=== PATIENT | female | born 1970 | race Two or more races ===

== ENCOUNTER 2016-08-02 04:34 | Emergency (ER) | payer OTHER, SELFPAY ==
[~2016-08-02] VITALS: Ht 157.5 cm; Wt 58.1 kg
[~2016-08-02 04:34] MED LIST: IRON325 M1 PO
[2016-08-02 04:50] VITALS: BP 152/44
[2016-08-02] MEDS ORDERED: NKM (05:36)
--- NOTE | 2016-08-02 05:48 | Emergency Room Report ---
History of Present Illness General Chief Complaint: Palpitations Source: Patient (MIKE RAJPUT M.D.) Present Illness HPI 45 YOF with no medical history presents with "palpitations" for 2 weeks, associated with chills, sweating, "hot flashes", intermittent left sided headache. Has history of dysfunctional uterine bleeding but hasnt had menstrual cycle "in a while." Currently asymptomatic. Denies chest pain, SOB, abd pain, urinary complaints. Denies ETOH, drug use, smoking. (MIKE RAJPUT M.D.) Allergies: Coded Allergies: No Known Allergies (Unverified , 02/19/13) Patient History Past Medical History: other - dysfunctional uterine bleeding Past Surgical History: none Pertinent Family History: none Social History: Denies: alcohol use, drug use, smoking Last Menstrual Period: May Now: No Immunizations: UTD Reviewed Nursing Documentation: PMH: Agreed, PSxH: Agreed (MIKE RAJPUT M.D.) Immunizations: UTD Reviewed Nursing Documentation: PMH: Agreed, PSxH: Agreed (CHRISSY ROYAL M.D.) Review of Systems All Other Systems: negative except mentioned in HPI (MIKE RAJPUT M.D.) Physical Exam Vital Signs Date Time Temp Pulse Resp B/P Pulse Ox O2 Delivery O2 Flow Rate FiO2 08/02/16 04:43 98.4 108 18 173/96 100 08/02/16 04:50 Room Air Sp02 EP Interpretation: reviewed, normal General Appearance: normal inspection, well appearing, no apparent distress, alert, GCS 15, non-toxic Head: normocephalic, atraumatic Eyes: bilateral eye EOMI, bilateral eye PERRL ENT: normal ENT inspection, hearing grossly normal, normal voice Neck: normal inspection, full range of motion, supple, no bony tend Respiratory: normal inspection, chest non-tender, lungs clear, normal breath sounds, no rhonchi, no respiratory distress, no retraction, no wheezing Cardiovascular #1: normal peripheral pulses, regular rate, rhythm, no edema Gastrointestinal: normal inspection, normal bowel sounds, non tender, soft, no guarding, no hernia Genitourinary: no CVA tenderness Musculoskeletal: normal inspection, back normal, normal range of motion, Dayo' s Sign negative Neurologic: normal inspection, alert, oriented x3, responsive, automatic engraver III-XII nml as tested, motor strength/tone normal, speech normal Psychiatric: normal inspection, judgement/insight normal, mood/affect normal Skin: normal inspection, normal color, no rash Lymphatic: normal inspection (MIKE RAJPUT M.D.) Medical Decision Making Diagnostic Impression: Primary Impression: Palpitations ER Course ECG is NSR. No arrhythmia. Labs: Pending at time of signout Endorsed to Dr Royal to DC home after labs results returned A: Unlikely ACS given duration of symptoms, no CAD risk factors. Possibly early menopause Given copy of results, advised PMD followup DC home (MIKE RAJPUT M.D.) ER Course Hospital Course 45-year-old F presents ED complaining of palpitations Clinical course Patient initially seen and evaluated by Dr Rajput; please see his note for full history and physical labs reviewed- all electrolytes normal, troponins negative, no leukocytosis, hemoglobin/hematocrit stable, TSH normal EKG - NSR, no acute ischemic changes Reassurance given. Patient remained asymptomatic in ED. Patient will followup with PMD as outpatient I. I feel this is a highly complex case requiring extensive working including EKG/Rhythm strip, Xray/CT/US, Blood/urine lab work, repeat exams while in ED, and administration of strong opiates/narcotics for pain control, admission to hospital or close patient follow up. Diagnosis - palpitations Stable and discharged to home. Instructed to followup with PMD. Return to ED if symptoms recur or worsen Labs Test 08/02/16 05:40 White Blood Count 4.5 K/UL (4.8-10.8) Red Blood Count 4.44 M/UL (4.20-5.40) Hemoglobin 11.8 G/DL (12.0-16.0) Hematocrit 37.3 % (37.0-47.0) Mean Corpuscular Volume 84 FL (80-99) Mean Corpuscular Hemoglobin 26.5 PG (27.0-31.0) Mean Corpuscular Hemoglobin Concent 31.5 G/DL (32.0-36.0) Red Cell Distribution Width 15.3 % (11.6-14.8) Platelet Count 279 K/UL (150-450) Mean Platelet Volume 8.5 FL (6.5-10.1) Neutrophils (%) (Auto) 70.2 % (45.0-75.0) Lymphocytes (%) (Auto) 22.2 % (20.0-45.0) Monocytes (%) (Auto) 6.2 % (1.0-10.0) Eosinophils (%) (Auto) 0.7 % (0.0-3.0) Basophils (%) (Auto) 0.7 % (0.0-2.0) Urine Color Pale yellow Urine Appearance Clear Urine pH 6 (4.5-8.0) Urine Specific [place] 1.015 (1.005-1.035) Urine Protein Negative (NEGATIVE) Urine Glucose (UA) Negative (NEGATIVE) Urine Ketones Negative (NEGATIVE) Urine Occult Blood 2+ (NEGATIVE) Urine Nitrite Negative (NEGATIVE) Urine Bilirubin Negative (NEGATIVE) Urine Urobilinogen Normal MG/DL (0.0-1.0) Urine Leukocyte Esterase 1+ (NEGATIVE) Urine RBC 2-4 /HPF (0 - 2) Urine WBC 2-4 /HPF (0 - 2) Urine Squamous Epithelial Cells Few /LPF (NONE/OCC) Urine Bacteria None /HPF (NONE) Sodium Level 141 mEQ/L (135-145) Potassium Level 3.9 mEQ/L (3.4-4.9) Chloride Level 101 mEQ/L (98-107) Carbon Dioxide Level 27 mEQ/L (20-30) Anion Gap 13 (5-15) Blood Urea Nitrogen 15 mg/dL (7-23) Creatinine 0.7 mg/dL (0.5-0.9) Estimat Glomerular Filtration Rate > 60 mL/min (>60) Glucose Level 114 mg/dL (74-106) Calcium Level 10.0 mg/dL (8.6-10.2) Total Bilirubin 0.3 mg/dL (0.0-1.2) Aspartate Amino Transf (AST/SGOT) 20 U/L (5-40) Alanine Aminotransferase (ALT/SGPT) 15 U/L (3-33) Alkaline Phosphatase 61 U/L (35-104) Total Creatine Kinase 155 U/L (26-140) Troponin I < 0.30 ng/mL (<=0.30) Total Protein 7.4 g/dL (6.6-8.7) Albumin 4.2 g/dL (3.5-5.2) Globulin 3.2 g/dL Albumin/Globulin Ratio 1.3 (1.0-2.7) Thyroid Stimulating Hormone (TSH) 3.110 uIU/mL (0.300-4.500) (CHRISSY ROYAL M.D.) EKG Diagnostic Results Rate: normal Rhythm: NSR ST Segments: no acute changes ASA given to the pt in ED: No (MIKE RAJPUT M.D.) Rhythm Strip Diag. Results EP Interpretation: yes Rate: 90 Rhythm: NSR, no PVC's, no ectopy (MIEK RAJPUT M.D.) Last Vital Signs Date Time Temp Pulse Resp B/P Pulse Ox O2 Delivery O2 Flow Rate FiO2 08/02/16 04:50 98.6 92 16 152/44 100 Room Air (MIKE RAJPUT M.D.) Status: improved (CHRISSY ROYAL M.D.) Disposition: HOME, SELF-CARE Condition: Stable Referrals: [facility] (PCP) MIKE RAJPUT M.D. Aug 02, 2016 05:48 CHRISSY ROYAL M.D. Aug 02, 2016 07:44
[2016-08-02 06:01] LABS: BASOPHILS % (AUTO) 0.7 % (0.0-2.0); EOSINOPHILS % (AUTO) 0.7 % (0.0-3.0); LYMPHOCYTES % (AUTO) 22.2 % (20.0-45.0); MEAN CORPUSCULAR HEMOGLOBIN 26.5 PG (27.0-31.0); MEAN CORPUSCULAR HGB CONC 31.5 G/DL (32.0-36.0); MEAN CORPUSCULAR VOLUME 84 FL (80-99); MEAN PLATELET VOLUME 8.5 FL (6.5-10.1); MONOCYTES % (AUTO) 6.2 % (1.0-10.0); NEUTROPHILS % (AUTO) 70.2 % (45.0-75.0); PLATELET COUNT 279 K/UL (150-450); RED BLOOD COUNT 4.44 M/UL (4.20-5.40); RED CELL DISTRIBUTION WIDTH 15.3 % (11.6-14.8); WHITE BLOOD COUNT 4.5 K/UL (4.8-10.8)
[2016-08-02 06:10] LABS: APPEARANCE,URINE CLEAR; KETONES,URINE NEGATIVE (NEGATIVE); NITRITE,URINE NEGATIVE (NEGATIVE); PH,URINE 6 (4.5-8.0); PROTEIN,URINE NEGATIVE (NEGATIVE); UROBILINOGEN,URINE NORMAL MG/DL (0.0-1.0)
[2016-08-02] MEDS ORDERED: Ketorolac 30mg Inj IV ONE (06:15)
[2016-08-02 06:16] LABS: ALANINE AMINOTRANSFERASE 15 U/L (3-33); ALBUMIN/GLOBULIN RATIO 1.3 (1.0-2.7); ANION GAP 13 (5-15); ASPARTATE AMINO TRANSFERASE 20 U/L (5-40); CARBON DIOXIDE 27 mEQ/L (20-30); CHLORIDE 101 mEQ/L (98-107); CREATININE 0.7 mg/dL (0.5-0.9); GLOMERULAR FILTRATION RATE > 60 mL/min (>60); HEMOLYSIS 1; POTASSIUM 3.9 mEQ/L (3.4-4.9); SODIUM 141 mEQ/L (135-145); TOTAL PROTEIN 7.4 g/dL (6.6-8.7)
[2016-08-02 06:17] LABS: LEUKOCYTE ESTERASE ,URINE 1+ (NEGATIVE); SQUAMOUS EPITHELIAL CELL,UR FEW /LPF (NONE/OCC)
[2016-08-02 06:18] LABS: TROPONIN I < 0.30 ng/mL (<=0.30)
[2016-08-02 07:10] VITALS: BP 139/85
[2016-08-02 07:42] VITALS: BP 124/93
--- NOTE | 2016-08-04 03:06 | Cardiology Report ---
APPROVED REPORT EKG Measurement Heart [id number] Normal sinus rhythm Normal ECG
== END 2016-08-02 07:44 | disposition home or self-care (01) ==
LOC: EMR 04:58
DX: R00.2 Palpitations (principal); R68.83 Chills (without fever); R51 Headache; R61 Generalized hyperhidrosis; R23.2 Flushing
CPT/HCPCS: 36415; 80053; 81003; 82550; 84443; 84484; 85025; 93005; 96374; 99283; J1885